=== PATIENT | male | born 1975 | race Caucasian/White ===

== ENCOUNTER 2024-01-24 08:00 | Day surgery (SDC) | payer OTHER, SELFPAY ==
[2023-12-22 11:42] VITALS: BMI 27.6
[2024-01-06 09:06] VITALS: BMI 26.5
--- NOTE | 2024-01-17 13:22 | PM.HPGS ---
History of Present Illness History of Present Illness Consent: Risks, benefits, and alternatives have been discussed and questions answered. Patient agrees to proceed with procedure. Chief complaint: Neoplasm Screening of Colon Narrative: Chaitanya Prieto is a 48 year old male Referred for colon cancer screening. Review of Systems Review of Systems: All systems reviewed & are unremarkable except as noted in HPI and below PMFSH Past Medical History Medical History Anxiety Elevated blood pressure reading without diagnosis of hypertension Testosterone deficiency Vitamin B12 deficiency Surgical History Surgical History History of eye surgery History of hernia repair Social History Social History Smoking status: Never smoker Second hand tobacco smoke exposure: No Alcohol intake: current Alcohol use details: 3 drinks per month Substance use: never Substance use type: does not use Lack of Transportation: No Lack of Food: Never True Current Housing: I Have Housing Concerned About Future Housing: No Difficulty Paying Gas/Electric Bills: No Difficulty Paying for Meds: No Currently Unemployed: No Education: High School Diploma/GED Difficulty w/ Childcare or Family Care: No Living arrangements: with family Occupation/Education: occupation Gender identity (if verbalized by the patient): Male Sexual Orientation (if Verbalized by the Patient): Straight or Heterosexual Spiritual care concerns: No Meds Home Medications and Allergies Home Medications Medication Instructions Recorded Confirmed Type aspirin 81 mg tablet,delayed 81 mg PO DAILY 08/11/22 01/24/24 History release syringe with needle 3 mL 23 x 1 #50 ea 06/27/23 12/20/23 Rx (BD Eclipse Luer-Elin[facility]) duloxetine 30 mg capsule,delayed 30 mg PO DAILY #90 caps 10/25/23 01/24/24 Rx release ascorbic acid (vitamin C) 500 mg 500 mg PO DAILY 01/06/24 01/24/24 History tablet lutein 10 mg tablet 10 mg PO DAILY 01/06/24 01/24/24 History mecobalamin (vitamin B12) 2,500 2,500 mcg PO DAILY 01/06/24 01/24/24 History mcg chewable tablet omega-3 fatty acids-vitamin E 1 cap PO DAILY 01/06/24 01/24/24 History 1,000 mg capsule rosuvastatin 10 mg tablet 10 mg PO DAILY 01/06/24 01/24/24 History Allergies Allergy/AdvReac Type Severity Reaction Status Date / Time No Known Allergies Allergy Verified 01/24/24 08:48 Exam Resp: Auscultation: clear to auscultation bilaterally Cardio: Rate: regular rate Rhythm: regular rhythm GI: GI Palp: Yes Soft to palpation and No Tenderness to palpation present (GI) Assessment and Plan Assessment and plan (1) Colon cancer screening: Code(s): Z12.11 - Encounter for screening for malignant neoplasm of colon Status: Acute Assessment and Plan: Colonoscopy with possible biopsy or polypectomy or cautery or injection of substances.
[2024-01-24 08:49] VITALS: BP 136/98; PULSE 102; RESP 18; TEMP 36.9; O2SAT 99
[2024-01-24] MEDS: LACTATED RINGERS 1,000 ML 150 ML IV CONT (09:13)
--- NOTE | 2024-01-24 09:13 | WPDANESEPPF ---
Anes - Initial Pre Proc Eval Procedure: Operation Date: 01/24/24 10:00 Proposed Procedures p Screening Colonoscopy - Boni Boswell MD Date/Time: 01/24/24 09:13 Surgeon: Boni Boswell MD Pre Op Diagnosis: Neoplasm Screening of Colon Patient Data Age: 48 Gender: M Height: 1.78 m Weight: 82.4 kg Last Vital Signs Temp 36.9 C 01/24/24 08:49 Pulse 102 H 01/24/24 08:49 Resp 18 01/24/24 08:49 BP 136/98 H 01/24/24 08:49 Pulse Ox 99 01/24/24 08:49 O2 Del Method Room Air 01/24/24 08:49 Allergies Allergy/AdvReac Type Severity Reaction Status Date / Time No Known Allergies Allergy Verified 01/24/24 08:48 Home Medications Medication Instructions Recorded Confirmed Type aspirin 81 mg tablet,delayed 81 mg PO DAILY 08/11/22 01/24/24 History release syringe with needle 3 mL 23 x 1 #50 ea 06/27/23 12/20/23 Rx (BD [facility]er-Elin[facility]) duloxetine 30 mg capsule,delayed 30 mg PO DAILY #90 caps 10/25/23 01/24/24 Rx release ascorbic acid (vitamin C) 500 mg 500 mg PO DAILY 01/06/24 01/24/24 History tablet lutein 10 mg tablet 10 mg PO DAILY 01/06/24 01/24/24 History mecobalamin (vitamin B12) 2,500 2,500 mcg PO DAILY 01/06/24 01/24/24 History mcg chewable tablet omega-3 fatty acids-vitamin E 1 cap PO DAILY 01/06/24 01/24/24 History 1,000 mg capsule rosuvastatin 10 mg tablet 10 mg PO DAILY 01/06/24 01/24/24 History Patient hx anesthesia problems: none Family hx anesthesia problems: post op nausea/vomiting and other (slow to awaken) Results Review: All pre-operative results and documents have been reviewed as part of the pre-operative evaluation. [facility] Past Medical History Medical History Anxiety Elevated blood pressure reading without diagnosis of hypertension Testosterone deficiency Vitamin B12 deficiency Surgical History Surgical History History of eye surgery History of hernia repair Social History Social History Smoking status: Never smoker Second hand tobacco smoke exposure: No Alcohol intake: current Alcohol use details: 3 drinks per month Substance use: never Substance use type: does not use Lack of Transportation: No Lack of Food: Never True Current Housing: I Have Housing Concerned About Future Housing: No Difficulty Paying Gas/Electric Bills: No Difficulty Paying for Meds: No Currently Unemployed: No Education: High School Diploma/GED Difficulty w/ Childcare or Family Care: No Living arrangements: with family Occupation/Education: occupation Gender identity (if verbalized by the patient): Male Sexual Orientation (if Verbalized by the Patient): Straight or Heterosexual Spiritual care concerns: No Anes - Eval Final PreProcedure Day of Procedure 01/24/24 09:13 Patient weight: normal Heart: regular rate and rhythm Lungs: clear to auscultation Airway: Mallampati scale class II Neurological: alert and oriented Last oral intake: >/= 8 hours ASA classification: II Emergent: no Anesthetic plan: proceed Anesthesia type and monitoring: general GIVS and standard monitoring Results Review: All pre-operative results and documents have been reviewed as part of the pre-operative evaluation. Informed Consent: The patient's anesthetic plan and its attendant risks and benefits were discussed with the patient/family/POA. Questions were solicited and answers provided to the satisfaction of the patient/family/POA.
[2024-01-24 09:50] VITALS: BP 125/82; PULSE 67; RESP 14; O2SAT 95
[2024-01-24 10:04] VITALS: BP 134/88; PULSE 77; RESP 18; O2SAT 97
[2024-01-24 10:10] VITALS: BP 132/76; PULSE 54; RESP 20; O2SAT 98
--- NOTE | 2024-01-24 10:25 | WPDANESPN ---
Anes - Prog Note Post-Op Date/Time: 01/24/24 10:25 Cardiovascular status: normal Respiratory status: normal Airway patency: baseline Mental status: baseline Post-Op hydration status: normal Vital Signs: Last Vital Signs Temp 36.9 C 01/24/24 08:49 Pulse 54 L 01/24/24 10:10 Resp 20 01/24/24 10:10 BP 132/76 01/24/24 10:10 Pulse Ox 98 01/24/24 10:10 O2 Del Method Room Air 01/24/24 10:10 Pain Score (VAS): 0 I/O: Intake & Output 01/23/24 01/24/24 01/24/24 23:59 07:59 15:59 Intake Total 400 Balance 400 Patient Feedback: Patient satisfied with anesthetic care.
== END 2024-01-24 10:17 | disposition home or self-care (01) ==
PROVIDERS: PCP Physician Assistant Medical; Visit Provider Internal Medicine Gastroenterology
PROC: 0DJD8ZZ Inspection of Lower Intestinal Tract, Via Natural or Artificial Opening Endoscopic (ICD-10-PCS; CPT 45378; principal; 2024-01-24 10:00)
DX: Z12.11 Encounter for screening for malignant neoplasm of colon (principal)
CPT/HCPCS: 45378